=== PATIENT | male | born 1940 | race African-American/Black ===

== ENCOUNTER 2023-06-01 02:35 | Inpatient (IN) | payer BC, MEDICARE, OTHER ==
[2023-06-01 03:45] LABS: #Eosinphils 0.2 thou/uL (0.0-0.7); #Monocytes 0.3 thou/uL (0.11-0.59); #Neutrophils 10.9 thou/uL (1.40-6.50); %Basophils 0.3 % (0.0-1.0); %Eosinophils 1.2 % (0.0-10.0); %Lymphocytes 12.9 % (21.0-51.0); %Monocytes 2.2 % (0.0-10.0); Hematocrit 34.6 % (42.0-52.0); Hemoglobin 11.3 g/dL (14.0-18.0); Mean Corpuscular HGB CONC 32.7 g/dL (32.0-36.0); Mean Corpuscular Hemoglobin 32.9 pg (27.0-31.0); Mean Corpuscular Volume 100.9 fl (78.0-98.0); Mean Platelet Volume 10.3 fL (7.4-10.4); Platelet Count 214 10x3/uL (130-400); RBC Distribution Width 12.6 % (11.5-14.5); Red Blood Cell (RBC) Count 3.43 mill/uL (4.70-6.10); White Blood Cell (WBC) Count 13.1 10x3/uL (4.8-10.8)
[2023-06-01 04:12] LABS: Troponin I 0.025 ng/mL (< 0.028)
[2023-06-01] MEDS ORDERED: Sodium Chloride 0.9% 100 ML ONE ×2 (04:12→09:44)
[2023-06-01] MEDS ORDERED: Vancomycin 1 GM/200 ML (FROZEN) BAG ONE (04:12)
[2023-06-01] MEDS ORDERED: Cefepime 2 GM VIAL ONE (04:12)
[2023-06-01 04:15] LABS: ALT (SGPT) 16 U/L (8-55); AST (SGOT) 51 U/L (5-34); Alkaline Phosphatase 77 U/L (40-110); Anion Gap 15 mmol/L (10-20); BUN (Urea Nitrogen) 26 mg/dL (8.4-25.7); Bilirubin, Total 0.4 mg/dL (0.2-1.2); Calc. Creatinine Clearance 0 mL/min (70-130); Calcium 8.3 mg/dL (7.8-10.44); Carbon Dioxide 17 mmol/L (23-31); Chloride 110 mmol/L (98-107); Estimated GFR 58; Globulin 2.6 g/dL (2.4-3.5); Glucose 141 mg/dL (83-110); Magnesium 2.3 mg/dL (1.6-2.6); Potassium 3.7 mmol/L (3.5-5.1); Protein, Total 6.6 g/dL (5.8-8.1); Sodium 138 mmol/L (136-145)
[2023-06-01 04:18] LABS: Actual Bicarbonate (HCO3v) 16.7 mEq/L (22-28); Base Excess -9.9 mEq/L (-2.0 to +3.0); Calcium, Ionized (venous) 1.08 mmol/L (1.16-1.32); Chloride (VBG) 104 mmol/L (98-106); Hematocrit-VBG 37 % (42.0-52.0); Hemoglobin (Hb) 12.5 g/dL (12.6-17.4); Sodium 139 mmol/L (133-146); pH (venous) 7.246 (7.32-7.43)
[2023-06-01] MEDS ORDERED: Sodium Chloride 0.9% 1,000 ML IV SCH (07:00)
[2023-06-01 07:02] LABS: Lactic Acid 3.7 mmol/L (0.5-2.2)
[2023-06-01] MEDS ORDERED: Electrolyte Replacement Protocol 1 EACH FS SCH (07:30)
[2023-06-01] MEDS ORDERED: [UNRECOGNIZED DRUG - REMARK] IVPB PRN (07:38)
[2023-06-01] MEDS ORDERED: Electrolyte Replacement Protocol FS PRN (07:45)
[2023-06-01 08:02] LABS: Bacteria/HPF None Seen HPF (None Seen); Bilirubin Negative (Negative); Blood, Urine Negative (Negative); Clarity Turbid (Clear); Glucose, Urine (Dipstick) Normal (Negative); Ketone, Urine Negative (Negative); Leukocyte Negative Leu/uL (Negative); Nitrite Negative (Negative); Protein, Urine (Dipstick) 30 mg/dL (Neg-Trace); RBC/HPF 0-3 HPF (0-3); Specific Gravity, Urine 1.024 (1.002-1.036); Squamous Epithelial None Seen HPF (0-3); Urobilinogen 3 mg/dL (Less than 2); WBC/HPF 0-3 HPF (0-3)
[2023-06-01] MEDS: Lactated Ringer's 1,000 ML IV SCH ×2 (08:12→17:12)
[2023-06-01 08:20] VITALS: BMI 27.8
[2023-06-01] MEDS ORDERED: Acetaminophen 650 MG Suppository PR PRN (08:20)
[2023-06-01] MEDS ORDERED: Ondansetron ODT 4 MG TAB PO PRN (08:20)
[2023-06-01] MEDS ORDERED: Acetaminophen 325 MG TAB PO PRN (08:20)
[2023-06-01] MEDS ORDERED: Ondansetron PF 4 MG/2 ML Vial IVP PRN (08:20)
[2023-06-01 08:23] LABS: SARS-CoV-2 NAA Rapid Test Not Detected (NotDetected)
[2023-06-01 08:41] LABS: Magnesium 2.2 mg/dL (1.6-2.6)
[2023-06-01] MEDS ORDERED: cefTRIAXone (ROCEPHIN) 2 GM VIAL ONE (09:43)
[2023-06-01] MEDS ORDERED: Diclofenac 1% 50 GM TOPICAL GEL TP PRN (09:43)
[2023-06-01] MEDS ORDERED: Pantoprazole 40 MG VIAL ONE (09:43)
[2023-06-01] MEDS ORDERED: Folic Acid 1 MG TAB ONE (09:43)
[2023-06-01] MEDS: cefTRIAXone\\ROCEPHIN 2 GM in Sodium Chloride 0.9% 100 ML IVPB SCH (10:06)
[2023-06-01] MEDS: Folic Acid 1 MG TAB PO SCH (10:07)
[2023-06-01] MEDS: Pantoprazole 40 MG VIAL IVP SCH (10:12)
[2023-06-01 18:17] LABS: Hematocrit 35.1 % (42.0-52.0); Hemoglobin 11.5 g/dL (14.0-18.0); Platelet Count 184 10x3/uL (130-400)
[2023-06-01 18:35] LABS: Lactic Acid 1.6 mmol/L (0.5-2.2)
[2023-06-01 18:40] LABS: Anion Gap 15 mmol/L (10-20); BUN (Urea Nitrogen) 21 mg/dL (8.4-25.7); Calc. Creatinine Clearance 67 mL/min (70-130); Calcium 8.5 mg/dL (7.8-10.44); Carbon Dioxide 17 mmol/L (23-31); Chloride 111 mmol/L (98-107); Estimated GFR 85; Glucose 86 mg/dL (83-110); Iron 18 ug/dL (65-175); Iron Binding Capacity, Total 188 mcg/dL (261-462); Potassium 4.8 mmol/L (3.5-5.1); Sodium 138 mmol/L (136-145)
[2023-06-01] MEDS: Atorvastatin Calcium 40 MG TAB PO SCH (19:59)
[2023-06-01 21:06] LABS: Campy jejuni + coli by PCR Negative (Negative); STEC Shiga Toxin 1+2 Negative (Negative); Salmonella spp. by PCR Negative (Negative); Shigella spp + EIEC by PCR Negative (Negative)
[2023-06-02 04:42] LABS: #Basophils 0.1 thou/uL (0.0-0.2); #Eosinphils 0.2 thou/uL (0.0-0.7); #Monocytes 0.7 thou/uL (0.11-0.59); #Neutrophils 7.5 thou/uL (1.40-6.50); %Basophils 0.5 % (0.0-1.0); %Eosinophils 2.4 % (0.0-10.0); %Lymphocytes 14.5 % (21.0-51.0); %Monocytes 6.6 % (0.0-10.0); %Neutrophils 75.7 % (42.0-75.0); Hematocrit 33.3 % (42.0-52.0); Hemoglobin 10.9 g/dL (14.0-18.0); Mean Corpuscular HGB CONC 32.7 g/dL (32.0-36.0); Mean Corpuscular Hemoglobin 32.6 pg (27.0-31.0); Mean Corpuscular Volume 99.7 fl (78.0-98.0); Mean Platelet Volume 10.7 fL (7.4-10.4); Platelet Count 183 10x3/uL (130-400); Red Blood Cell (RBC) Count 3.34 mill/uL (4.70-6.10)
[2023-06-02 05:00] LABS: Anion Gap 12 mmol/L (10-20); BUN (Urea Nitrogen) 14 mg/dL (8.4-25.7); Calc. Creatinine Clearance 73 mL/min (70-130); Carbon Dioxide 21 mmol/L (23-31); Chloride 109 mmol/L (98-107); Estimated GFR 87; Glucose 89 mg/dL (83-110); Magnesium 3.2 mg/dL (1.6-2.6); Potassium 4.2 mmol/L (3.5-5.1); Sodium 138 mmol/L (136-145)
[2023-06-02 05:09] LABS: Phosphorus 2.8 mg/dL (2.3-4.7)
[2023-06-02] MEDS ORDERED: Amlodipine 5 MG TAB PO SCH (09:00)
[2023-06-02] MEDS: Lactated Ringer's 1,000 ML IV SCH (10:12)
[2023-06-02] MEDS: cefTRIAXone\\ROCEPHIN 2 GM in Sodium Chloride 0.9% 100 ML IVPB SCH (10:13)
[2023-06-02] MEDS: Folic Acid 1 MG TAB PO SCH (10:14)
[2023-06-02] MEDS: Clopidogrel Bisulfate 75 MG TAB PO SCH (10:15)
[2023-06-02] MEDS: Ferrous Sulfate 325 MG TAB PO SCH (10:15)
[2023-06-02] MEDS: Pantoprazole 40 MG VIAL IVP SCH (10:16)
[2023-06-02] MEDS: Atorvastatin Calcium 40 MG TAB PO SCH (19:54)
[2023-06-02] MEDS: Amlodipine 5 MG TAB PO SCH (20:31)
[2023-06-02] MEDS ORDERED: Enoxaparin 40 MG (0.4 mL) SYRINGE SC SCH (21:00)
[2023-06-02] MEDS ORDERED: Guaifenesin DM 100-10/5 ML UDCUP PO PRN (21:23)
[2023-06-03] MEDS: Lactated Ringer's 1,000 ML IV SCH (00:29)
[2023-06-03 05:13] LABS: #Basophils 0.1 thou/uL (0.0-0.2); #Eosinphils 0.4 thou/uL (0.0-0.7); #Monocytes 0.7 thou/uL (0.11-0.59); #Neutrophils 7.9 thou/uL (1.40-6.50); %Basophils 0.5 % (0.0-1.0); %Eosinophils 3.7 % (0.0-10.0); %Lymphocytes 11.4 % (21.0-51.0); %Monocytes 6.9 % (0.0-10.0); %Neutrophils 77.2 % (42.0-75.0); Hematocrit 32.8 % (42.0-52.0); Hemoglobin 10.8 g/dL (14.0-18.0); Mean Corpuscular HGB CONC 32.9 g/dL (32.0-36.0); Mean Corpuscular Hemoglobin 32.8 pg (27.0-31.0); Mean Corpuscular Volume 99.7 fl (78.0-98.0); Mean Platelet Volume 10.7 fL (7.4-10.4); Platelet Count 194 10x3/uL (130-400); RBC Distribution Width 12.5 % (11.5-14.5); Red Blood Cell (RBC) Count 3.29 mill/uL (4.70-6.10); White Blood Cell (WBC) Count 10.3 10x3/uL (4.8-10.8)
[2023-06-03 05:44] LABS: Anion Gap 13 mmol/L (10-20); BUN (Urea Nitrogen) 10 mg/dL (8.4-25.7); Calc. Creatinine Clearance 74 mL/min (70-130); Carbon Dioxide 24 mmol/L (23-31); Chloride 104 mmol/L (98-107); Estimated GFR 87; Glucose 94 mg/dL (83-110); Potassium 3.8 mmol/L (3.5-5.1); Sodium 137 mmol/L (136-145)
[2023-06-03 08:32] VITALS: TEMP 98
[2023-06-03] MEDS ORDERED: Multivitamin W/ Minerals 1 TAB PO SCH (09:00)
[2023-06-03] MEDS: Clopidogrel Bisulfate 75 MG TAB PO SCH (09:09)
[2023-06-03] MEDS: Ferrous Sulfate 325 MG TAB PO SCH (09:09)
[2023-06-03] MEDS: Folic Acid 1 MG TAB PO SCH (09:09)
[2023-06-03] MEDS: cefTRIAXone\\ROCEPHIN 2 GM in Sodium Chloride 0.9% 100 ML IVPB SCH (09:10)
[2023-06-03] MEDS: Amlodipine 5 MG TAB PO SCH (09:10)
[2023-06-03 14:56] VITALS: BP 137/82
== END 2023-06-03 15:00 | disposition home or self-care (01) | DRG 683 ==
LOC: ERS 02:35 → ERHOLD 06:41 → 2NO 15:53 → T4-B 06-02 17:27
PROVIDERS: ADMIT Family Medicine; ATTEND Hospitalist
DX: N17.9 Acute kidney failure, unspecified (principal); E87.20 Acidosis, unspecified; K52.9 Noninfective gastroenteritis and colitis, unspecified; E86.0 Dehydration; E78.5 Hyperlipidemia, unspecified; I10 Essential (primary) hypertension; D50.9 Iron deficiency anemia, unspecified; M19.90 Unspecified osteoarthritis, unspecified site; E83.39 Other disorders of phosphorus metabolism; Z86.73 Personal history of transient ischemic attack (TIA), and cerebral infarction without residual deficits; Z79.899 Other long term (current) drug therapy; Z11.52 Encounter for screening for COVID-19
CPT/HCPCS: 36415; 36416; 51701; 71045; 74018; 80048; 80053; 81001; 82805; 83540; 83550; 83605; 83735; 83880; 84100; 84145; 84484; 85025; 86850; 86900; 86901; 87040; 87324; 87449; 87505; 93005; 96365; 96367; C9113; J0692; J0696; J1650; J3370-JW; J3490; J7120

== ENCOUNTER 2025-04-21 00:04 | Inpatient (IN) | payer MEDICARE ==
[2025-04-21 02:12] LABS: ALT (SGPT) 24 U/L (Less than 45); AST (SGOT) 57 U/L (11-34); Albumin 4.3 g/dL (3.1-4.5); Alkaline Phosphatase 93 U/L (40-110); Anion Gap 18 mmol/L (10-20); BUN (Urea Nitrogen) 22 mg/dL (8.4-25.7); Bilirubin, Total 0.5 mg/dL (0.3-1.2); Calc. Creatinine Clearance 0 mL/min (70-130); Calcium 9.2 mg/dL (7.8-10.44); Carbon Dioxide 18 mmol/L (23-31); Chloride 105 mmol/L (98-107); Globulin 3.0 g/dL (2.4-3.5); Glucose 119 mg/dL (83-110); Magnesium 1.9 mg/dL (1.6-2.6); Potassium 4.1 mmol/L (3.5-5.1); Sodium 137 mmol/L (136-145)
[2025-04-21 02:14] LABS: #Basophils 0.03 10x3/uL (0.0-0.2); #Eosinophils 0.04 10x3/uL (0.0-0.7); #Monocytes 0.76 10x3/uL (0.11-0.59); #Neutrophils 7.00 10x3/uL (1.40-6.50); %Basophils 0.3 % (0.0-1.0); %Eosinophils 0.5 % (0.0-10.0); %Lymphocytes 8.9 % (21.0-51.0); %Monocytes 8.8 % (0.0-10.0); %Neutrophils 81.0 % (42.0-75.0); Hematocrit 34.4 % (42.0-52.0); Hemoglobin 11.0 g/dL (14.0-18.0); Mean Corpuscular Hemoglobin 31.5 pg (27.0-31.0); Mean Corpuscular Volume 98.6 fL (78.0-98.0); Platelet Count 162 10x3/uL (130-400); Red Blood Cell (RBC) Count 3.49 mill/uL (4.70-6.10); White Blood Cell (WBC) Count 8.64 10x3/uL (4.8-10.8)
[2025-04-21 02:26] LABS: INR-International Normal Ratio 1.1; PTT 29.8 sec (22.9-36.1); Prothrombin Time 13.8 sec (12.0-14.7)
[2025-04-21] MEDS ORDERED: Proparacaine 0.5% Opth 15 ML BOT ONE (03:23)
[2025-04-21] MEDS ORDERED: Fluorescein Opthalmic Strip ONE (03:23)
[2025-04-21 04:06] LABS: Bacteria/HPF None Seen HPF (None Seen); CAUTI Indications for Culture Dysuria,urgency,freq; Glucose, Urine (Dipstick) Normal (Negative); Leukocyte Negative Leu/uL (Negative); Protein, Urine (Dipstick) Negative (Neg-Trace); RBC/HPF 0-3 HPF (0-3); WBC/HPF 0-3 HPF (0-3)
[2025-04-21 04:16] LABS: Specific Gravity, Urine Greater than 1.050 (1.002-1.036)
[2025-04-21 04:17] LABS: Urine Culture Reflex No No
[2025-04-21] MEDS ORDERED: Ondansetron PF 4 MG/2 ML Vial IVP PRN (04:57)
[2025-04-21] MEDS ORDERED: Calcium Carbonate 500 MG ChewTAB PO PRN (04:57)
[2025-04-21] MEDS ORDERED: Electrolyte Replacement Protocol 1 EACH FS SCH (05:00)
[2025-04-21] MEDS ORDERED: PHOS-NAK 1 PKT PACK PO PRN (05:15)
[2025-04-21] MEDS ORDERED: Potassium Chloride 20 MEQ in Premix 1 BAG IVPB PRN (05:15)
[2025-04-21] MEDS ORDERED: Acyclovir Sodium 500 mg (10 mL) Vial IVPB SCH (06:00)
[2025-04-21 06:37] VITALS: BMI 27.8
[2025-04-21] MEDS: SODIUM CHLORIDE 0.9% IVPB SCH ×2 (06:40→15:09)
[2025-04-21] MEDS: ACYCLOVIR SODIUM IVPB SCH ×2 (06:40→15:09)
[2025-04-21] MEDS: Magnesium 2 GM/50 ML(in water) 2 GM in Premix 1 BAG IVPB PRN (09:01)
[2025-04-21] MEDS ORDERED: Iopamidol 370 76% 100 ML VIAL ONE (11:36)
[2025-04-21] MEDS: Acetaminophen 325 MG TAB PO PRN (12:59)
[2025-04-21] MEDS: Lisinopril 10 MG TAB PO SCH (22:08)
[2025-04-22] MEDS: Milk Of Magnesia 30 ML UDCUP PO SCH (03:22)
[2025-04-22 04:35] LABS: #Basophils 0.04 10x3/uL (0.0-0.2); #Eosinophils 0.08 10x3/uL (0.0-0.7); #Monocytes 0.65 10x3/uL (0.11-0.59); #Neutrophils 4.41 10x3/uL (1.40-6.50); %Basophils 0.6 % (0.0-1.0); %Eosinophils 1.3 % (0.0-10.0); %Lymphocytes 17.5 % (21.0-51.0); %Monocytes 10.3 % (0.0-10.0); %Neutrophils 70.1 % (42.0-75.0); Hematocrit 33.2 % (42.0-52.0); Hemoglobin 10.7 g/dL (14.0-18.0); Mean Corpuscular Hemoglobin 31.4 pg (27.0-31.0); Mean Corpuscular Volume 97.4 fL (78.0-98.0); Platelet Count 149 10x3/uL (130-400); Red Blood Cell (RBC) Count 3.41 mill/uL (4.70-6.10); White Blood Cell (WBC) Count 6.29 10x3/uL (4.8-10.8)
[2025-04-22] MEDS: Aspirin Chewable 81 MG TAB PO SCH (10:01)
[2025-04-22] MEDS: Multivitamin W/ Minerals 1 TAB PO SCH (10:02)
[2025-04-22 10:12] LABS: ALT (SGPT) 20 U/L (Less than 45); AST (SGOT) 52 U/L (11-34); Albumin 4.2 g/dL (3.1-4.5); Alkaline Phosphatase 83 U/L (40-110); Anion Gap 12 mmol/L (10-20); BUN (Urea Nitrogen) 11 mg/dL (8.4-25.7); Bilirubin, Total 0.7 mg/dL (0.3-1.2); Calc. Creatinine Clearance 81 mL/min (70-130); Calcium 9.6 mg/dL (7.8-10.44); Carbon Dioxide 26 mmol/L (23-31); Chloride 102 mmol/L (98-107); Globulin 3.3 g/dL (2.4-3.5); Glucose 94 mg/dL (83-110); Potassium 4.1 mmol/L (3.5-5.1); Sodium 136 mmol/L (136-145)
[2025-04-22] MEDS: Milk Of Magnesia 30 ML UDCUP PO PRN (21:47)
[2025-04-24 12:36] VITALS: BP 132/78; TEMP 98.1
== END 2025-04-24 13:48 | disposition home or self-care (01) | DRG 312 ==
LOC: ERS 00:04 → PCU 05:06 → OBSVTOIN 04-23 11:22
PROVIDERS: ADMIT Student in an Organized Health Care Education/Training Program; ATTEND Internal Medicine
DX: R55 Syncope and collapse (principal); B02.30 Zoster ocular disease, unspecified; I10 Essential (primary) hypertension; Z98.890 Other specified postprocedural states; Z86.73 Personal history of transient ischemic attack (TIA), and cerebral infarction without residual deficits; I48.91 Unspecified atrial fibrillation; E78.00 Pure hypercholesterolemia, unspecified; Z79.899 Other long term (current) drug therapy; Z79.82 Long term (current) use of aspirin
CPT/HCPCS: 36415; 70496; 70498; 70551; 71045; 80053; 81001; 83605; 83735; 84484; 85025; 85610; 85730; 86850; 86900; 86901; 93005; 96374; 96375; 96376; G0378; J0133; J3475; J7050; Q9967